=== PATIENT | female | born 1960 | race Caucasian/White ===

== ENCOUNTER 2020-01-16 14:27 | Emergency (ER) | payer OTHER ==
[2020-01-16 14:47] VITALS: BP 152/84; PULSE 95
--- NOTE | 2020-01-16 14:54 | EDM.PDOC ---
ED HPI GENERAL MEDICAL PROBLEM - General Chief Complaint: Upper Extremity Injury/Pain Stated Complaint: L THUMB INJURY Time Seen by Provider: 01/16/20 14:46 Source of Information: Reports: Patient History Limitations: Reports: No Limitations - History of Present Illness INITIAL COMMENTS - FREE TEXT/NARRATIVE: The patient presents with left thumb pain. She was riding horse yesterday and the horse bucked and she jammed her left thumb. She has more pain and swelling today. She is left handed. She has no other injuries. Onset: Sudden Duration: Day(s): Location: Reports: Upper Extremity, Left (Thumb) Quality: Reports: Sharp Severity: Moderate Improves with: Reports: Immobilization Worsens with: Reports: Movement Context: Reports: Trauma (Jammed it when horse bucked) Associated Symptoms: Reports: No Other Symptoms Left Finger-Thumb Pain Score (Numeric/FACES): 7 - Related Data Allergies Allergy/AdvReac Type Severity Reaction Status Date / Time dapsone Allergy Severe Other Verified 01/16/20 14:47 sulfamethoxazole Allergy Severe Hives Verified 01/16/20 14:47 [From Bactrim] trimethoprim [From Bactrim] Allergy Severe Hives Verified 01/16/20 14:47 Home Meds: Home Meds Amoxicillin/Clavulanate K [Augmentin 875 MG/125 MG] 1 tab PO Q12HR #20 tablet [Rx] Brimonidine [Alphagan P 0.1% Ophth Soln] 1 drop OP BID 01/20/15 [History] Diclofenac Potassium [Zipsor] 75 mg PO DAILY 01/20/15 [History] Naratriptan HCl [Naratriptan] 2.5 mg PO DAILY 01/20/15 [History] atenoloL [Atenolol] 75 mg PO DAILY 01/20/15 [History] azaTHIOprine [Azathioprine] 125 mg PO DAILY 01/20/15 [History] Past Medical History HEENT History: Reports: Other (See Below) Other HEENT History: Retinovasculitis Musculoskeletal History: Reports: RA, Other (See Below) Other Musculoskeletal History: Inflammatory autoimmune disorder Other Hematologic History: autoimmune disorder - Past Surgical History HEENT Surgical History: Reports: Eye Surgery Musculoskeletal Surgical History: Reports: Hip Replacement, Knee Replacement, Shoulder Replacement Social & Family History - Tobacco Use Smoking Status *Q: Never Smoker Second Hand Smoke Exposure: No - Caffeine Use Caffeine Use: Reports: None - Recreational Drug Use Recreational Drug Use: No Review of Systems - Review of Systems Review Of Systems: See Below Constitutional: Reports: No Symptoms Eyes: Reports: No Symptoms Ears: Reports: No Symptoms Nose: Reports: No Symptoms Mouth/Throat: Reports: No Symptoms Respiratory: Reports: No Symptoms Cardiovascular: Reports: No Symptoms GI/Abdominal: Reports: No Symptoms Genitourinary: Reports: No Symptoms Musculoskeletal: Reports: Other (Left thumbe pain and swelling) ED EXAM, GENERAL - Physical Exam Exam: See Below Exam Limited By: No Limitations General Appearance: Alert, No Apparent Distress Ears: Normal External Exam Nose: Normal Inspection Head: Atraumatic, Normocephalic Neck: Normal Inspection Respiratory/Chest: No Respiratory Distress Extremities: Other (Edema to the MCP of the left thumb with pain upon palpation. Good sensation and capillary refill distally.) Course - Vital Signs Last Recorded V/S: Last Vital Signs Temp 98 F 01/16/20 14:45 Pulse 95 01/16/20 14:45 Resp 16 01/16/20 14:45 BP 152/84 H 01/16/20 14:45 Pulse Ox 99 01/16/20 14:45 - Orders/Labs/Meds Orders: Active Orders 24 hr Category Date Time Status Fingers Thumb Lt FA [CR] Stat Exams 01/16/20 14:50 Taken Durable Medical Equipment for Discharge [DME for Oth 01/16/20 15:05 Ordered Discharge] [COMM] Stat - Re-Assessments/Exams Free Text/Narrative Re-Assessment/Exam: 01/16/20 14:54 I ordered an x-ray of her left thumb. 01/16/20 15:05 Her x-ray looks good. It appears she sprained her thumb. I will give her a splint and have her follow up with Dr Warner if this does not help. Departure - Departure Time of Disposition: 15:10 Disposition: Home, Self-Care 01 Condition: Good Clinical Impression: Thumb sprain Qualifiers: Encounter type: initial encounter Sprain of finger site: metacarpophalangeal joint Laterality: left Qualified Code(s): S63.642A - Sprain of metacarpophalangeal joint of left thumb, initial encounter - Discharge Information *PRESCRIPTION DRUG MONITORING PROGRAM REVIEWED*: Not Applicable *COPY OF PRESCRIPTION DRUG MONITORING REPORT IN PATIENT PAIGE: Not Applicable Referrals: PCP,Not In Area [Primary Care Provider] - Pop Warner MD [Physician] - 1 Week Forms: ED Department Discharge Additional Instructions: Ice your thumb for 15 minutes 3 times per day for 2 days. Wear the splint for about a week. Take tylenol or motrin for pain. Please return if you are worse. Sepsis Event Note - Evaluation Sepsis Screening Result: No Definite Risk - Focused Exam Vital Signs: Vital Signs Temp Pulse Resp BP Pulse Ox 01/16/20 14:45 98 F 95 16 152/84 H 99 Date Exam was Performed: 01/16/20 Time Exam was Performed: 15:05 - My Orders Last 24 Hours: My Active Orders 01/16/20 14:50 Fingers Thumb Lt FA [CR] Stat 01/16/20 15:05 Durable Medical Equipment for Discharge [DME for Discharge] [COMM] Stat - Assessment/Plan Last 24 Hours: My Active Orders 01/16/20 14:50 Fingers Thumb Lt FA [CR] Stat 01/16/20 15:05 Durable Medical Equipment for Discharge [DME for Discharge] [COMM] Stat
--- NOTE | 2020-01-17 06:43 | CR ---
Left thumb: 3 views centered to the left thumb were obtained. Comparison: No prior thumb study is available. Joint spaces are preserved. No acute fracture or other bony abnormality is identified. Small calcification is noted off the distal 1st metacarpal which is believed to be old. Impression: 1. No acute bony abnormality is identified on left thumb study. Diagnostic code #2 This report was dictated in MDT
== END 2020-01-16 15:15 | disposition home or self-care (01) ==
LOC: JD.ED 14:27
DX: S63.642A Sprain of metacarpophalangeal joint of left thumb, initial encounter (principal); Z88.8 Allergy status to other drugs, medicaments and biological substances; Z88.2 Allergy status to sulfonamides; Z88.1 Allergy status to other antibiotic agents; Z79.899 Other long term (current) drug therapy; W55.12XA Struck by horse, initial encounter
CPT/HCPCS: 73140-26-FA; 73140-FA; 99282; 99283-25